=== PATIENT | female | born 1940 | race Caucasian/White ===

== ENCOUNTER 2021-10-30 05:19 | Emergency (ER) | payer OTHER, SELFPAY ==
[2021-10-30] VITALS (34 sets, daily range): BP systolic 145–194; BP diastolic 62–111; PULSE 66–96; RESP 15–33; TEMP 36.3; O2SAT 93–100
--- NOTE | ~2021-10-30 | XR_ITS ---
EXAMINATION: XR knee LT 2V DATE: 10/30/2021 06:24 INDICATION: Distal left femur fracture status post reduction. TECHNIQUE: 2 views of left knee were obtained. COMPARISON: Left knee radiographs at 5:30 AM FINDINGS: There is an oblique fracture of distal femoral metaphysis. The distal fracture fragment dem onstrates 37 degrees medial angulation, 2.5 cm medial displacement, and 11 degrees posterior angulati on. There is diffuse osteopenia. There is moderate osteoarthritis of lateral compartment and mild ost eoarthritis of medial and patellofemoral compartments. There is a small knee joint effusion. IMPRESSION: 1. Oblique fracture of distal femoral metaphysis. 2. Moderate left knee osteoarthritis. 3. Small left knee joint effusion. Reviewed, dictated and finalized at location A.
--- NOTE | ~2021-10-30 | XR_ITS ---
EXAMINATION: XR knee LT 3V DATE: 10/30/2021 05:52 INDICATION: Dislocation. TECHNIQUE: 2 views of left knee were obtained. COMPARISON: None. FINDINGS: There is a comminuted fracture of distal femoral metaphysis. The main distal fracture fragm ent demonstrates 20 degrees medial angulation, variable posterior angulation at the 90 degrees, and v ariable rotation. There is diffuse osteopenia. There is moderate left knee osteoarthritis. IMPRESSION: 1. Comminuted fracture of distal femoral metaphysis. 2. Moderate left knee osteoarthritis. Reviewed, dictated and finalized at location A.
[2021-10-30 06:09] LABS: Basophils Percent Auto 0.9 % (0.2-1.2); Eosinophils Absolute Auto 0.2 K/mm3 (0-0.3); Eosinophils Percent Auto 4.6 % (0-4.4); Hematocrit 43.2 % (37.0-47.0); Hemoglobin 13.4 g/dL (12.0-15.0); Immature Platelet Fraction Pct 4.6 % (0.9-11.2); Lymphocytes Percent Auto 24.5 % (18.3-44.2); Mean Corpuscular Hemoglobin 33.8 pg (26-34); Mean Corpuscular Volume 109.1 fl (80-100); Mean Platelet Volume 10.5 fl (7.4-10.4); Monocytes Absolute Auto 0.2 K/mm3 (0.1-0.6); Monocytes Percent Auto 6.7 % (2.6-8.5); Neutrophils Absolute Auto 2.1 K/mm3 (1.3-6.7); Neutrophils Percent Auto 63.3 % (45.5-73.1); Platelet Count Result 99 k/mm3 (150-375); Red Blood Count 3.96 M/mm3 (4.2-5.4); Red Cell Distribution Width 14.8 % (11.5-14.5); White Blood Count 3.3 K/mm3 (4.5-10.0)
--- NOTE | 2021-10-30 06:13 | ED.LOWEXIN ---
HPI - Extremity Injury (Lower) General Chief Complaint: Extremity Injury, Lower Stated Complaint: KNEE DISLOCATION History of Present Illness HPI Narrative: Patient is an 81-year-old female with history of dementia who [facility] with a deformity to the left knee. shelter staff thinks that the patient rolled over wrong in bed and suffered injury to her knee. Patient was found in her bed and out on the floor. There is no report of witnessed trauma. Patient cannot give history as to what occurred. Patient has obvious deformity to the distal femur and knee region. Distal pulses and sensation intact. Related Data Allergies Allergy/AdvReac Type Severity Reaction Status Date / Time No Known Allergies Allergy Verified 10/30/21 05:27 Review of Systems Review of Systems: ROS unobtainable: Yes unobtainable due to mental status PMFSH Past Medical History Medical History (Updated 10/30/21 @ 06:44 by Haseeb Plummer MD) Alzheimers disease CHF (congestive heart failure) Cirrhosis COPD (chronic obstructive pulmonary disease) Hypertension Peripheral vascular disease Schizophrenia Seizure disorder Surgical History Surgical History (Updated 10/30/21 @ 06:16 by Haseeb Plummer MD) Surgical history unknown Exam Narrative: GENERAL: Chronically ill-appearing and frail, and in mild distress. HEAD: Normocephalic, atraumatic. EYES: PERRL and EOMI. ENT: Mucous membranes moist. CHEST: Clear to auscultation. No respiratory distress. HEART: Regular rate and rhythm. Normal peripheral pulses. ABDOMEN: Soft, nontender, nondistended. EXTREMITIES: Normal range of motion bilateral upper extremities and right lower extremity. Left lower extremity with deformity of the distal femur at the knee unable to extend or flex due to pain. Neurovascular intact distal to the deformity. SKIN: Warm, dry, no rash. NEURO: Awake and alert but not oriented.. Course Course Emergency Course: Unsuccessful reduction of left distal femur fracture. I have discussed the case at length multiple times with Mrs. Ledy Toussaint who is the patient's POA. She can be reached at [phone]. Patient has been accepted to [facility] ER by Dr. Sawyer. Vital Signs Vital signs: Vital Signs Temperature 97.4 F L 10/30/21 05:18 Pulse Rate 89 10/30/21 05:18 Respiratory Rate 16 10/30/21 05:18 Pulse Oximetry 100 10/30/21 05:18 Temperature 97.4 F L 10/30/21 05:18 Pulse Rate 75 10/30/21 06:46 Respiratory Rate 18 10/30/21 06:46 Blood Pressure 145/77 H 10/30/21 06:46 Pulse Oximetry 100 10/30/21 06:46 Oxygen Delivery Nasal Cannula 10/30/21 06:46 Oxygen Flow Rate 4 10/30/21 06:46 Procedures Orthopedic Fracture Reduction Fracture #1: Fracture Reduction date: 10/30/21 Fracture Reduction time: 06:01 Side: left Fracture Reduction Location: femur Analgesia: procedural sedation (Propofol 40 mg) Pre-Procedure Neuro Vascular Exam: normal Technique: direct manipulation Post Reduction X-rays Demonstrate: other (Minimal change) Post-reduction neuro exam: intact Post-reduction vascular exam: intact Patient Tolerated Procedure: well and no complications MDM - Extremity Injury (Lower) Lab Data Result diagrams: 10/30/21 06:00 10/30/21 06:00 Labs: Lab Results 10/30/21 10/30/21 10/30/21 Range/Units 06:00 06:00 06:00 WBC 3.3 L (4.5-10.0) K/mm3 RBC 3.96 L (4.2-5.4) M/mm3 Hgb 13.4 (12.0-15.0) g/dL Hct 43.2 (37.0-47.0) % MCV 109.1 H (80-100) fl MCH 33.8 (26-34) pg MCHC 31.0 L (32-36) g/dl RDW 14.8 H (11.5-14.5) % Plt Count 99 L (150-375) k/mm3 MPV 10.5 H (7.4-10.4) fl Immature Gran % (Auto) 0.0 (0-0.5) % Neut % (Auto) 63.3 (45.5-73.1) % Lymph % (Auto) 24.5 (18.3-44.2) % Worth % (Auto) 6.7 (2.6-8.5) % Eos % (Auto) 4.
[2021-10-30 06:19] LABS: Prothrombin Time 12.8 Seconds (11.1-14.7)
--- NOTE | 2021-10-30 06:19 | PC.NURSE ---
Moderate Sedation preformed. This RN and two PCT in room at the time. ERP recieved verbal consent from pts POA prior. Crashcart and ampbu bag set up in room. ERP performed time out prior. ERP pushed 40 mg propofol at 0601. He attempted without success of reducing knee. Pt tolerated procedure will. Now monitoring pt. Pts knee currently propped up with pillows.
[2021-10-30 06:20] LABS: Partial Thromboplastin Time 31.6 SECONDS (22.3-36.8)
[2021-10-30 06:33] LABS: Anion Gap 6 mmol/L (8-16); Blood Urea Nitrogen 18 mg/dL (7-17); Calcium 9.6 mg/dL (8.4-10.2); Carbon Dioxide 36 mmol/L (22-30); Chloride 99 mmol/L (98-107); Estimated CRCL calculation 67 ml/min; Estimated Glomerular Filt Rate > 60; Glucose 130 mg/dL (65-110); Potassium 3.9 mmol/L (3.4-5.0); Sodium 141 mmol/L (137-145)
--- NOTE | 2021-10-30 06:45 | PC.NURSE ---
0635 C collar applied per ERP request [id number] ERP discussed transfer with pts poa.
[2021-10-30] MEDS: MORPHINE SULFATE (*CRX) 2 MG/ML INJ IV PUSH (07:25)
== END 2021-10-30 07:27 | disposition short-term general hospital (02) ==
PROVIDERS: Emergency Provider Emergency Medicine; PCP Family Medicine
DX: S72.402A Unspecified fracture of lower end of left femur, initial encounter for closed fracture (principal); G30.9 Alzheimer's disease, unspecified; F02.80 Dementia in other diseases classified elsewhere, unspecified severity, without behavioral disturbance, psychotic disturbance, mood disturbance, and anxiety; I11.0 Hypertensive heart disease with heart failure; I50.9 Heart failure, unspecified; J44.9 Chronic obstructive pulmonary disease, unspecified; G40.909 Epilepsy, unspecified, not intractable, without status epilepticus; F20.9 Schizophrenia, unspecified; K74.60 Unspecified cirrhosis of liver; X58.XXXA Exposure to other specified factors, initial encounter
CPT/HCPCS: 27762; 36415; 73560; 73562; 80048; 85025; 85055; 85610; 85730; 96374; 99285; J2270; L0140